=== PATIENT | male | born 1955 | race Caucasian/White ===

== ENCOUNTER → 2021-03-24 | Outpatient (CLI) | payer OTHER ==
[~2021-03-24] MED LIST: HYDR12.58 PO; IBUP-1027 PO; MULT-245 PO
--- NOTE | 2021-03-24 15:44 | PDOC1 ---
INITIAL PAIN CONSULT DATE OF SERVICE: DOS: DATE: 03/24/21 TIME: 15:34 CHIEF COMPLAINT: Chief Complaint: Neck and bilateral upper extremity pain left greater than right HISTORY OF PRESENT ILLNESS: 65-year-old male presents with history of pain base the neck and shoulders upper extremities left greater than right for about 3 months not the result of any specific injury or accident that he is aware of but has been getting worse with time to the point where he is becoming very fatigued with both the upper extremity especially on the left side even with simple tasks as brushing his teeth become very difficult and he is having weakness in both the arms again worse on the left side patient reported stiff and the neck and shoulders shooting pain the base of the neck and shoulders into the upper extremities posterior deltoid anterior deltoid lateral deltoid biceps triceps forearms in the anterior and posterior aspect and also into the hand specially in the thumb and first finger on the left side but also into the hand on the right side with less intensity patient reports he has not been dropping items specifically but is very fatigued and is very careful when he is holding something because it feels like it may drop it patient reports it is a shooting pain in the arms cold feeling as well as burning in the base of the neck and shoulders worse with repetitive motions reaching or lifting items reaching forward repetitive w eightbearing as well with some numbness and tingling in the hands patient reports it generally does not awaken her from sleep at night does not affect her bowel bladder control does affect his ability to walk he feels he is off balance and feels that his arms are not swinging naturally as he cannot feel them as well as he did 3 months ago patient rates his disability rating 0-10 10 being the worst is a 9 with family home responsibilities recreation occupation sexual behavior and self-care 6 with social activity and 1 with life support activities. Patient has had chiropractic treatment since November of this year and also has his daughter who is a physical therapist has been working on him and giving him physical therapy exercises which has been doing diligently daily 4-5 times patient reports still significant pain despite the exercises and stretching. Patient has been applying heat packs to the base of neck and shoulders alternating with ice packs which helped temporarily as well. Patient also been taking ibuprofen which does decrease the pain by about 20 to 25%. Patient reports no motor deficits but significant fatigability again of the left greater than right upper extremities. PAST MEDICAL HISTORY: PMH: Hypertension, cigarette smoking PREVIOUS SURGERIES: Past Surgical Hx: Hernia repair 2008, tonsillectomy as a child, appendectomy as a child CURRENT MEDICATIONS: Current Meds: Active Scripts Medications Dose Route/Sig Max Daily Dose Days Date Category Ibuprofen 400 Mg Tablet 400 Mg PO PRN Q6HRS PRN 03/24/21 Reported Multi Vitamin Daily (Multivitamin) 1 Each Tablet 1 Tab PO DAILY 30 03/24/21 Reported Hydrochlorothiazide Tablet (Hydrochlorothiazide) 12.5 Mg Tablet 12.5 Mg PO DAILY 03/24/21 Reported ALLERGIES; Allergies: Coded Allergies: No Known Drug Allergies (Unverified , 03/24/21) FAMILY HISTORY: Family Hx: No major medical problems or conditions that he is aware of SOCIAL HISTORY: Social Hx: Patient drinks alcohol about 1 case of beer a week smokes about half pack of cigarettes a day continues to smoke has for 40 years, does not use any illegal illicit or recreational drugs is lives with his spouse lives locally in [facility] and is currently retired. REVIEW OF SYSTEMS: ROS: Positive for those items mentioned in history of present illness, all systems are reviewed, otherwise negative ,and are complete full and well-documented on patient's chart. PHYSICAL EXAM: VS: Blood pressure is 202/107 pulse 85 respirations 18 temperature 97.9 F height is 5 foot 10 inches weight is 212 pounds PE: PHYSICAL EXAMINATION: GENERAL: The patient is awake, alert, oriented, appropriate, very pleasant in demeanor HEENT: Shows normocephalic, atraumatic. Extraocular movements are intact and symmetrical. Oral cavity: Mucous membranes moist and pink. Dentition is intact. NECK: Shows anterior throat supple without palpable lymphadenopathy noted. Swallow reflex symmetrical. CHEST: Shows normal on inspection. Breath sounds are clear bilaterally, coarse and distant but no rales or rhonchi auscultated. HEART: Shows S1, S2 clear. No murmurs auscultated. ABDOMEN: Soft, nontender, nondistended. No palpable organomegaly is noted. BACK: Shows spine grossly in the midline. Normal-appearing cervical lordotic curvature. Cervical paraspinous muscles show symmetrical on inspection, on palpation some moderate tenderness diffusely throughout the upper middle lower distribution the paraspinous muscles bilaterally but without asymmetry without trigger points or atrophy or hypertrophy. Patient shows good rotation motion cervical spine with some moderate tenderness with far left lateral rotation past 45 degrees as well as with extension but not with forward flexion or right lateral rotation. There is mildly increased thoracic kyphosis, some flattening of the lumbar lordotic curvature. EXTREMITIES: Upper extremities show deep tendon reflexes 2+ in the biceps and triceps tendons. Motor exam is 5 on a scale of 5 with right rib, biceps and triceps flexion and 4/5 on the left. Peripheral pulses are 2+ radial. No peripheral edema is noted bilaterally. Upper extremities are warm and dry to touch, equal in color and appearance. Shoulder shrug strong intact without loss of strength on resistance as is abduction of the shoulders 90 degrees bilaterally. SKIN: Shows warm and dry, good turgor. No edema. No sores, rashes or bruising throughout. IMPRESSION: Impression: 65-year-old male with 3-month history increasing pain base of neck bilateral upper extremities left greater than right in a radicular fashion following a C6- 7 dermatomal distribution. Hypertension Cigarette smoking Plan: Options were discussed with the patient including serve medical managements continued physical therapies and chiropractic treatments as well as interventional techniques. As patient has been doing physical therapy exercises also been treating for chiropractic for several months without resolution and has been using anti-inflammatories without significant improvement he like to pursue interventional techniques. We discussed a cervical epidural steroid injection using descriptions as well as anatomical models to describe the procedure. Patient will wait for preauthorization with insurance provider, once obtained we will have him return for translaminar approach C6-7 level cervical epidural steroid injection with fluoroscopic guidance. In the meantime, patient continue with stretching and strengthening physical therapy exercises as well as oral analgesics as currently. Also will add Medrol Dosepak patient was given instructions well side effects aware with the medication. CLARE RAMÍREZ MD Mar 24, 2021 15:44
== END | disposition home or self-care (01) ==
LOC: PNCL 13:55
PROVIDERS: ATTEND Anesthesiology
DX: M54.2 Cervicalgia (principal); M79.602 Pain in left arm; M79.601 Pain in right arm; I10 Essential (primary) hypertension; Z87.891 Personal history of nicotine dependence; Z79.899 Other long term (current) drug therapy
CPT/HCPCS: G0463

== ENCOUNTER → 2021-03-26 | Outpatient (CLI) | payer OTHER ==
[~2021-03-26] MED LIST changes: +methylPREDNISolone ACETATE 80 MG/ML VIAL. ONE
--- NOTE | 2021-03-26 08:58 | PDOC ---
Progress Note - Pain Clinic Date of Service: DOS: DATE: 03/26/21 TIME: 08:55 Diagnosis: Dx: Cervical radiculopathy with cervical degenerative disc disease and cervical spinal stenosis History or Present Illness: HPI: 65-year-old male returns for follow-up with complaints of pain base the neck and bilateral upper extremities with numbness and tingling in both of the hands with significant fatigability and weakness in the hands patient reports is a 5 out of scale 10 at worst average and least is a 5 today patient reports a stiff feeling in both the hands and arms tingling as well with radiating pain base the neck and shoulders upper extremities into the biceps triceps deltoid as well as into the forearms anterior and posteriorly in the hands again with tingling and stiff feeling with numbness in the hands with difficulty with holding onto things and fine motor movements as well. Patient reports is better with resting supporting his arms does not awaken from sleep generally. Patient reports no bowel or bladder incontinence. Patient is continuing with stretching and strength exercise as well as oral analgesics without significant improvement. Physical Exam: VS: Blood pressure is 200/110 pulse 71 respirations 18 temperature 97.8 F height is 5 feet 10 inches weight 216 pounds PE: PHYSICAL EXAMINATION: GENERAL: The patient is awake, alert, oriented, appropriate, very pleasant in demeanor HEENT: Shows normocephalic, atraumatic. Extraocular movements are intact and symmetrical. Patient wearing eyeglasses. Oral cavity: Mucous membranes moist and pink. Dentition is intact. NECK: Shows anterior throat supple without palpable lymphadenopathy noted. Swallow reflex symmetrical. CHEST: Shows normal on inspection. Breath sounds are clear bilaterally, distant but no rales or rhonchi. HEART: Shows S1, S2 clear. No murmurs auscultated. ABDOMEN: Soft, nontender, nondistended. No palpable organomegaly is noted. BACK: Shows spine grossly in the midline. Normal-appearing cervical lordotic curvature. Cervical paraspinous muscles show symmetrical inspection, on palpation some moderate tenderness diffusely bilaterally diffusely without significant radiation. Patient does show good rotation of motion of the cervical spine with some moderate tenderness with right left lateral rotation as well as extension but not with forward flexion. There is slightly increased thoracic kyphosis, some minor flattening of the lumbar lordotic curvature. EXTREMITIES: Upper extremities show deep tendon reflexes 2 in the patellar and tendo calcaneus tendons. Motor exam is 5 on a scale of 5 with right dorsiflexion, extension, quadriceps and hamstring flexion and 4/5 on the left. Peripheral pulses are 2+ posterior tibial. No peripheral edema is noted bilate rally. Upper extremities are warm and dry to touch, equal in color and appearance. Shoulder shrug is strong and intact with some moderate tenderness with resistance but without loss of strength this is true with abduction of the shoulder 90 degrees as well. SKIN: Shows warm and dry, good turgor. No edema. No sores, rashes or bruising throughout. Procedure: Procedure: Options were discussed with the patient. Patient chart was reviewed his his current medication regimen updated current review of systems updated today as well. We will proceed with cervical epidural steroid injection today with flu oroscopic guidance. Risks were discussed including but not limited to: Bleeding, infection, possibility of epidural hematoma and subsequent neurological compromise, dural puncture, headaches, spinal cord and/or nerve damage, side effects of steroid medication, and poor results regarding pain control. Patient understands and wished to proceed. Patient will return to the clinic in approximately 2 weeks for follow-up, was counseled as to return appointment, activity level, and side effect to be aware of. Medication Injected: Med Injected: Procedure cervical epidural steroid injection at the C6-7 level, using local anesthetic under sterile prep and drape using C-arm fluoroscopic guidance under local anesthesia medications injected ;120 mg Depo-Medrol +5 mL normal saline and 2 mL contrast; condition at discharge is stable patient tolerated procedure well. and had no complications Condition at Discharge: Condition at Discharge: Condition at discharge stable, paced tolerated procedure well complications. CLARE RAMÍREZ MD Mar 26, 2021 08:58
--- NOTE | 2021-03-26 08:59 | PDOC4 ---
Procedure Note: ICD 10 Code: ICD 10 Code: M54.12 M50.30 M48.02 Procedure Note: Patient was consented for cervical epidural steroid injection with fluoroscopic guidance. Risks were discussed including but not limited to: Bleeding, infection, possibility of epidural hematoma and subsequent neurological compromise, dural puncture, headaches, spinal cord and/or nerve damage, side effects of steroid medication, and poor results regarding pain control. Patient understands and wished to proceed. Procedure cervical epidural steroid injection at the C6-7 level, using local a nesthetic under sterile prep and drape using C-arm fluoroscopic guidance under local anesthesia medications injected ;120 mg Depo-Medrol +5 mL normal saline and 2 mL contrast; condition at discharge is stable patient tolerated procedure well. and had no complications CLARE RAMÍREZ MD Mar 26, 2021 08:59
== END | disposition home or self-care (01) ==
LOC: PNCL 07:49
PROVIDERS: ATTEND Anesthesiology
DX: M50.10 Cervical disc disorder with radiculopathy, unspecified cervical region (principal); M48.02 Spinal stenosis, cervical region; M54.12 Radiculopathy, cervical region; Z79.899 Other long term (current) drug therapy
CPT/HCPCS: 62321; J1040

== ENCOUNTER → 2021-04-17 | Outpatient (CLI) | payer OTHER ==
[~2021-04-17] MED LIST changes: +AMLO-186 PO; -methylPREDNISolone ACETATE 80 MG/ML VIAL. ONE
[2021-04-17 14:21] LABS: BASO % 1 % (0-3); EOS # 0.2 x10^3/uL (0.0-0.7); EOS % 2 % (0-3); HEMATOCRIT 48.9 % (39.0-53.0); HEMOGLOBIN 16.8 g/dL (13.0-17.5); LYMPH # 3.1 x10^3/uL (1.0-4.8); LYMPH % 31 % (24-48); MEAN CORPUSCULAR HEMOGLOBIN 33 pg (25-35); MEAN CORPUSCULAR HGB CONC 34 g/dL (31-37); MEAN CORPUSCULAR VOLUME 95 fL (79-100); MONO # 0.8 x10^3/uL (0.0-1.1); MONO % 8 % (0-9); NEUT # 5.8 x10^3/uL (1.8-7.7); NEUT % 59 % (31-73); PLATELET COUNT 222 x10^3/uL (140-400); RED BLOOD COUNT 5.16 x10^6/uL (4.30-5.70); RED CELL DISTRIBUTION WIDTH 12.9 % (11.5-14.5); WHITE BLOOD COUNT 9.9 x10^3/uL (4.0-11.0)
[2021-04-17 14:34] LABS: ALBUMIN 3.6 g/dL (3.4-5.0); ALBUMIN/GLOBULIN RATIO 0.9 (1.0-1.7); CALCIUM 8.6 mg/dL (8.5-10.1); CREATININE 0.8 mg/dL (0.7-1.3); GFR 97.3; POTASSIUM 4.1 mmol/L (3.5-5.1); TOTAL BILIRUBIN 0.4 mg/dL (0.2-1.0); TOTAL PROTEIN 7.8 g/dL (6.4-8.2)
--- NOTE | 2021-04-17 14:39 | EKG ---
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
== END ==
LOC: SURGPAT 13:52
PROVIDERS: ATTEND Neurological Surgery
DX: Z01.818 Encounter for other preprocedural examination (principal); M47.12 Other spondylosis with myelopathy, cervical region; M48.02 Spinal stenosis, cervical region
CPT/HCPCS: 36415; 80053; 85025; 87641; 93005

== ENCOUNTER 2021-04-23 09:48 | Observation (INO) | payer OTHER ==
[2021-04-17 14:30] VITALS: BP 188/91
--- NOTE | 2021-04-22 11:30 | HP ---
DATE OF SERVICE: 04/22/2021 ADMIT DATE: 04/23/2021 PREOPERATIVE HISTORY AND PHYSICAL HISTORY OF PRESENT ILLNESS: The patient is a pleasant 65-year-old man who is having difficulty with neck pain, numbness, stiffness in both of his arms and legs. The left side is slightly worse than the right. He says that about 6 months ago, he hit his head and has noted soreness in his neck since then. About 2 months ago, he noticed numbness in his arms and hands. He is dropping objects. He says that his neck pain gradually improved. He has difficulty coordinating his hands. His balance is off and he feels unsteady. He has not fallen. He had two cervical epidural steroid injections without benefit. CURRENT MEDICATIONS: Motrin, hydrochlorothiazide. PAST MEDICAL HISTORY: Hypertension. PAST SURGICAL HISTORY: Meniscus repair, appendectomy, hernia repair. FAMILY HISTORY: Heart disease, hypertension. 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 . Smokes 1 pack per day. Drinks alcohol 1-2 times per week. ALLERGIES: No known drug allergies. REVIEW OF SYSTEMS: A 12-point review of systems was performed and is noncontributory except that mentioned above. PHYSICAL EXAMINATION: GENERAL: Alert, pleasant, in no acute distress. HEAD: Normocephalic, atraumatic. NECK: [id number] tenderness with palpation of the posterior cervical region. SKIN: Warm and dry. MUSCULOSKELETAL: Cervical paraspinal muscle bulk is normal. Cervical range of motion is restricted. There is normal range of motion of the upper extremities bilaterally. EXTREMITIES: No clubbing, cyanosis or edema. NEUROLOGIC: Alert and oriented x 3. Strength is 5/5 in the bilateral upper and lower extremities. He was unable to button or use his zipper with his hands. Sensory was intact to light touch in the upper and lower extremities except for decreased sensation with light touch involving the forearm and hand, reflexes were present and symmetric in the upper and lower extremities bilaterally with both ankle jerks 3+. He had spastic and unsteady gait. IMAGING: I reviewed his cervical MRI scan. On that study, there is cord flattening and cord hyperintensity at C3-C4. There is also high-grade bilateral foraminal narrowing at that level. The thecal sac is 0.6 cm in AP diameter. ASSESSMENT AND PLAN: He is developing a severe cervical myelopathy with difficulty using his hands and unsteady gait. There is evidence of myelomalacia and cord edema within the spinal cord at C3-4 along with relatively severe stenosis at that level. My recommendation is that we move forward, probably with an ACDF at C3-4. I spoke with him about the surgery and the risks. I spoke with him about the technique of surgery. He has failed conservative measures. He understands he would like to go ahead. We will make the arrangements. JOE DR: Delmi TID: [id number]
[~2021-04-23] VITALS: Ht 177.8 cm; Wt 97.7 kg
[2021-04-23] VITALS (10 sets, daily range): BP systolic 134–172; BP diastolic 63–96
[~2021-04-23 09:48] MED LIST changes: +BUPIVACAINE-EPI 0.5% 30 ML VIAL KIT. ONE; +GELATIN SPONGE SIZE 100. ONE; +HYDROmorphone 2 MG/ML INJ. IVP PRN; +IV RINGERS,LACTATED 1000ML 1,000 ML IV SCH; +MORPHINE SULFATE 2 MG/ML INJ. IVP PRN; +PROCHLORPERAZINE 10 MG/2 ML VIAL. IVP PRN; +THROMBIN TOPICAL 20,000 UNIT SPRAY.SYRN KIT TP ONE; +ceFAZolin SODIUM 1 GM in IV NORMAL SALINE 1000ML BAG 1,000 ML IRR ONE; +fentaNYL PF VIAL 100 MCG/2 ML VIAL IVP PRN
[2021-04-23] MEDS ORDERED: PROPOFOL 10 MG/ML (20ML) VIAL. IV ONE (09:49)
[2021-04-23] MEDS ORDERED: PROPOFOL 50 ML IV ONE ×2 (09:49→10:55)
[2021-04-23] MEDS ORDERED: DEXAMETHASONE SOD PHOS 4 MG/ML VIAL ONE (09:49)
[2021-04-23] MEDS ORDERED: LIDOCAINE 2% PF 5 ML VIAL. ONE (09:49)
[2021-04-23] MEDS ORDERED: SEVOFLURANE > 120 MINUTES. IH ONE (09:49)
[2021-04-23] MEDS ORDERED: PHENYLEPHRINE 10 MG/ML VIAL. ONE (09:49)
[2021-04-23] MEDS ORDERED: REMIFENTANIL 1 MG VIAL. IV ONE ×2 (09:50→12:27)
[2021-04-23] MEDS ORDERED: fentaNYL PF VIAL 100 MCG/2 ML VIAL ONE ×2 (09:50→15:52)
[2021-04-23] MEDS ORDERED: SUCCINYLCHOLINE 200 MG/10 ML VIAL. ONE (09:50)
[2021-04-23] MEDS ORDERED: ACET325T9 PO (10:18)
[2021-04-23] MEDS ORDERED: GLYCOPYRROLATE 1 MG/5 ML VIAL. ONE (10:39)
[2021-04-23] MEDS ORDERED: KETAMINE HCL IN NACL, ISO-OSM 50 MG/5 ML SYRINGE ONE (10:39)
[2021-04-23] MEDS ORDERED: HYDROmorphone 2 MG/ML INJ. ONE (12:51)
[2021-04-23] MEDS ORDERED: MAG HYDROX/ALUMINUM HYD/SIMETH 30 ML ORAL.SUSP PO PRN (15:15)
[2021-04-23] MEDS ORDERED: MAGNESIUM HYDROXIDE 2,400 MG/30 ML ORAL.SUSP. PO PRN (15:15)
[2021-04-23] MEDS ORDERED: NALOXONE 0.4 MG/ML VIAL. IV PRN (15:15)
[2021-04-23] MEDS ORDERED: HYDROcodone/APAP 5/325MG 1 TAB TABLET PO PRN (15:15)
[2021-04-23] MEDS ORDERED: 0.9 % SODIUM CHLORIDE 10 ML DISP.SYRIN. IV PRN (15:15)
[2021-04-23] MEDS ORDERED: ACETAMINOPHEN 325 MG TABLET. PO PRN (15:15)
[2021-04-23] MEDS ORDERED: fentaNYL PF VIAL 100 MCG/2 ML VIAL IVP PRN (15:15)
[2021-04-23] MEDS ORDERED: diphenhydrAMINE HCL 25 MG CAPSULE PO PRN (15:15)
[2021-04-23] MEDS ORDERED: METHOCARBAMOL 750 MG TABLET PO PRN (15:15)
[2021-04-23] MEDS: fentaNYL PF VIAL 100 MCG/2 ML VIAL IVP PRN ×2 (15:54→16:16)
--- NOTE | 2021-04-23 16:15 | NUR ---
Pt arrived to unit by bed. Alert and oriented x's 4. Dressing on neck d/i with soft collar. Still c/o shoulder pain and has numbness on finger tips on both hands which he had prior to surgery. Equal hand material scheduler with + radial pulses. ANNABELLE's and HERMANN's on bilaterally. IVF's intact and infusing. O2 at 2l per n/c. Had to increase O2 to 3l to keep it above 91%. Oriented to room and controls. Side rails up x's 2 with call light in reach. at bedside. Cont. monitored.
[2021-04-23] MEDS ORDERED: NICO1PAT21 TP (16:43)
[2021-04-23] MEDS: HYDROcodone/APAP 5/325MG 1 TAB TABLET PO PRN ×2 (17:30→23:10)
[2021-04-23] MEDS: POTASSIUM CL 20MEQ D5-0.45NACL 1,000 ML IV SCH (17:32)
[2021-04-23] MEDS: ACETAMINOPHEN 325 MG TABLET. PO SCH (17:32)
--- NOTE | 2021-04-23 17:53 | OP ---
DATE OF SURGERY: 04/23/2021 PREOPERATIVE DIAGNOSIS: Cervical spinal stenosis with cervical myelopathy, C3-C4. POSTOPERATIVE DIAGNOSIS: Cervical spinal stenosis with cervical myelopathy, C3-C4. OPERATION PERFORMED: Anterior cervical microdiscectomy, anterior cervical interbody fusion and anterior cervical plate, C3-C4. The operation was done with EMG monitoring, SSEP monitoring, NIMS monitoring, fluoroscopy, microscopic dissection, motor evoked potentials. Surgeon: Manny Diaz M.D. TALENT DEVELOPMENT CONSULTANT: JOY Sim; assisted with the surgery. She assisted with the exposure, the microdiskectomy as well as the fusion and closure. OPERATIVE INDICATIONS: The patient is a pleasant 66-year-old man who developed problems with unsteadiness and coordination along with numbness and stiffness in arms and legs. On imaging studies, he had the above-mentioned findings and I recommended an anterior cervical microdiscectomy and fusion. I spoke about the surgery, the risks, technique and expected postoperative course, and he wished to go ahead. DESCRIPTION OF PROCEDURE: Following general endotracheal anesthesia, the patient was positioned supine on the operating room table with his neck in a neutral position. The anterior cervical region was then prepped and draped in standard fashion. ANNABELLE hose and AV impulse boots were applied for DVT prophylaxis. A microscope was draped, fluoroscopy was draped and brought into the field. Monitoring established. Ancef 2 grams was given less than one hour prior to initiation of surgery. Using fluoroscopic guidance, incision was made from the midline around to the right side in a skin crease. I dissected around the medial aspect of sternocleidomastoid after opening the platysma and dissected down medial to the carotid artery sheath and palpated the anterior cervical vertebral bodies and placed Cloward handheld retractors and gently retracted the trachea and esophagus contralaterally and placed an anterior cervical retractors wedged in the longus colli muscle. I then placed 14 mm distraction pins in C3 and C4. During this time, I was confirming that position fluoroscopically. Following this, I brought in the microscope and the remainder of surgery done with the microscope using microscopic technique. I incised the anterior annulus. I performed discectomy with pituitary rongeurs. I gently distracted the disc space. I removed cartilaginous endplate. I drilled the posterior spurring and then used a 1-2 mm Kerrison to further trim that spurring and then I opened the annulus and the ligament widely bilaterally. The dura was well visualized. The neural foramina were open. I scraped again the cartilaginous endplate and prepared the bed for fusion. Hemostasis was excellent. I placed a 7 mm interbody fusion cage after I assured myself of perfect hemostasis, which was packed with allograft bone. This was gently tapped into position and then I used an anterior cervical plate with 14 mm screws using the [place] system and the screws after placement, which were 14 mm were locked. Following this, then I irrigated with antibiotic solution. I removed the retractor and explored carefully. I Valsalvaed the patient to assure excellent hemostasis, which there was and then I gently irrigated, closed the wound in layers with absorbable suture and skin was closed with a 4-0 subcuticular stitch. I felt the surgery went very well. ELTON DR: Simona TID: [id number] SAM
--- NOTE | 2021-04-23 18:38 | NUR ---
returned from bathroom; unsteady gait. voided large amount. no appetite. remains at bedside.
[2021-04-23] MEDS: ceFAZolin SODIUM IV Push 1 GM VIAL. IVP SCH (21:06)
[2021-04-23] MEDS: DOCUSATE SODIUM 100 MG CAPSULE. PO SCH (21:06)
[2021-04-23] MEDS: NICOTINE 21MG PATCH. TD SCH (21:07)
[2021-04-24 04:08] VITALS: BP 174/96
[2021-04-24] MEDS: CALCIUM CARBONATE 500 MG TAB.CHEW PO PRN ×2 (04:10→09:56)
[2021-04-24] MEDS: POTASSIUM CL 20MEQ D5-0.45NACL 1,000 ML IV SCH (04:35)
[2021-04-24 05:38] VITALS: BP 172/95
[2021-04-24] MEDS: ACETAMINOPHEN 325 MG TABLET. PO SCH ×3 (05:40→11:35)
[2021-04-24] MEDS: ceFAZolin SODIUM IV Push 1 GM VIAL. IVP SCH ×2 (05:40→12:56)
[2021-04-24 07:19] VITALS: BP 180/96
[2021-04-24] MEDS: DOCUSATE SODIUM 100 MG CAPSULE. PO SCH (08:48)
[2021-04-24] MEDS ORDERED: MULTIVITAMIN with MINERAL TABLET. PO SCH (09:00)
[2021-04-24] MEDS ORDERED: NICOTINE 21MG PATCH. TD SCH (09:00)
[2021-04-24] MEDS ORDERED: hydroCHLOROthiazide 12.5 MG CAPSULE PO SCH (09:00)
[2021-04-24] MEDS ORDERED: DOCU-109 PO (09:52)
[2021-04-24] MEDS ORDERED: HYDR-2761 PO (09:52)
[2021-04-24] MEDS ORDERED: METH-562 PO (09:52)
--- NOTE | 2021-04-24 09:55 | SNU/HH DC ---
DISCHARGE WITH HOME HEALTH DISCHARGE INFORMATION: Discharge Date: Apr 24, 2021 Final Diagnosis: cervical stenosis Condition on Discharge: Stable CODE STATUS: Code Status: Full HOME HEALTH: Face to Face: I certify this patient is under my care and that I, or a nurse practitioner or physician's diploma dental assistant working with me, had a face to face encounter that meets the physician face to face encounter requirements with this patient on 04/24/21 Long-Term For: Assess & Educate Safety RN For Eval/Treatment: Yes Physical Therapy For: Safety Pt Meets Homebound Status: Unsteady balance w/ amb,, Limited distance walking POST DISCHARGE ORDERS: Activity Instructions for Disc: Activity as tolerated, Avoid exertion Weight Bearing Status after Di: No restrictions Bathing Instructions: Shower-keep dressing dry, No Tub Bath until see DIET AFTER DISCHARGE: Regular Wound/Incision Care: Ice to area for comfort Other wound/incision instructi: may remove dressing in 48 hours if dry, soft collar for comfort FOLLOW-UP: PCP to follow Home Health: Dr. Nagel [phone] Follow up with: PCP TREATMENT/EQUIPMENT ORDERS: Adaptive Equipment Issued: Front wheeled walker CERTIFICATION STATEMENT: Certification Statement: Certification Statement: Based on the above finding, I certify that this patient is confined to the home and needs intermittent longterm care, physical therapy and/or speech therapy, or continues to need occupational therapy.~ This patient is under my care, and I have initiated the establishment of the plan of care.~ This patient will be followed by myself or a community physician who will periodically review the plan of care. Home Meds Reported Medications Nicotine (NICODERM CQ 21mg) 1 Each Patch.td24, 1 PATCH TP DAILY for stop smoking aide, #28 PATCH 1 Refill 04/23/21 Acetaminophen (TYLENOL) 325 Mg Tablet, 500 MG PO Q6HRS for , TAB 04/23/21 Amlodipine Besylate (AMLODIPINE BESYLATE) 5 Mg Tablet, 5 MG PO DAILY07 for HTN, TAB 04/17/21 Ibuprofen (IBUPROFEN) 400 Mg Tablet, 400 MG PO PRN Q6HRS PRN for INFLAMMATION, TAB 03/24/21 Multivitamin (MULTI VITAMIN DAILY) 1 Each Tablet, 1 TAB PO DAILY for supplment for 30 Days, #30 TAB 0 Refills 03/24/21 Hydrochlorothiazide (HYDROCHLOROTHIAZIDE TABLET) 12.5 Mg Tablet, 12.5 MG PO DAILY for DIURETIC, TAB 0 Refills 03/24/21 BRIONNA NAGEL MD Apr 24, 2021 09:55
[2021-04-24 11:20] VITALS: BP 180/99
[2021-04-24] MEDS: NICOTINE 21MG PATCH. TD SCH (13:08)
--- NOTE | 2021-04-24 14:51 | NUR ---
Rosalina Garcia APRN on the unit and made aware of BP 180/99. Spoke with pt and . Primary has been adjusting bp meds. Instructed to make appointment with Dr. Mancuso to follow up. Okay to discharge.
--- NOTE | 2021-04-24 15:30 | NUR ---
Discharge instructions given. Answered questions and concerns. Verbalized understanding. Will follow up with primary about BP meds. Discharged home. Refused home health. Escorted out by w/c accompanied by spouse.
--- NOTE | 2021-04-24 16:15 | NUR ---
Pt's called to let nurse know that spouse's blood pressure was better after getting home.
--- NOTE | 2021-04-28 16:06 | PATHOLOGY ---
[facility] Accession Number: [id number] . 01 Material submitted: . vertebral column - CERVICAL DISC. Modifiers: C3-4 . 01 Clinical history: . CERVICAL SPONDYLOSIS WITH MYELOPATHY, STENOSIS ACDF C3-4 . 02 Diagnosis: Segments of fibrocartilaginous tissue and bone, cervical disc: - Degenerative changes of fibrocartilaginous tissue. (JPM:pawel; 04/28/2021) MBR 04/28/2021 1348 Local . 02 Comment: There is no evidence of an acute inflammatory process or malignancy. . 02 Electronically signed: . Mickey Razo MD, Pathologist NPI- [id number] . 01 Gross description: . The specimen is received in formalin, labeled "Klein, Chapito, cervical disc". Received are multiple segments of pale juarez to pink-juarez fibrous tissue admixed with possible fragments of gritty bone measuring 2.2 x 1.5 x 0.3 cm in aggregate dimensions. The specimen is submitted representatively in cassette A1, following light decalcification. ([facility]; 04/25/2021) NRI/NRI 04/25/2021 1053 Local . 02 Pathologist provided ICD-10: M43.02, G95.9 . 02 CPT . 360986, [id number] Specimen Comment: A courtesy copy of this report has been sent to [phone], [phone] Specimen Comment: [id number] Specimen Comment: Report sent to / DR MAK Specimen Comment: A duplicate report has been generated due to demographic updates. Performed at: [id number] [facility] [address], [place], [place] [id number] MD Roque Barboza MD Phone: [phone] Performed at: [address] [id number] MD Mickey Razo MD Phone: [phone]
== END 2021-04-24 15:30 | disposition home or self-care (01) ==
LOC: SURG 09:48 → 4 SOUTHEST 15:08
PROVIDERS: ADMIT Neurological Surgery; ATTEND Neurological Surgery
DX: M48.02 Spinal stenosis, cervical region (principal); Z20.822 Contact with and (suspected) exposure to COVID-19; G95.89 Other specified diseases of spinal cord; I10 Essential (primary) hypertension; F17.210 Nicotine dependence, cigarettes, uncomplicated; Z90.49 Acquired absence of other specified parts of digestive tract; Z79.899 Other long term (current) drug therapy; Z98.890 Other specified postprocedural states
CPT/HCPCS: 20930; 22551; 22845; 22853; 88304; 88311; 96374; 96376; 97116; 97161; A4364; A4556; A4930; A6254; A6258; C1713; C1821; G0378; G0379; J0330; J0690; J1100; J1170; J2370; J2704; J3010; J3480; J3490; J7030; 76000; A4222; A4223

== ENCOUNTER → 2021-08-01 | Outpatient (CLI) | payer OTHER ==
[~2021-08-01] MED LIST changes: +ACET325T9 PO; -BUPIVACAINE-EPI 0.5% 30 ML VIAL KIT. ONE; +DOCU-109 PO; +GADOTERATE 5 MMOL/10ML VIAL. IVP ONE; -GELATIN SPONGE SIZE 100. ONE; +HYDR-2761 PO; -HYDROmorphone 2 MG/ML INJ. IVP PRN; -IV RINGERS,LACTATED 1000ML 1,000 ML IV SCH; +METH-562 PO; -MORPHINE SULFATE 2 MG/ML INJ. IVP PRN; +NICO1PAT21 TP; -PROCHLORPERAZINE 10 MG/2 ML VIAL. IVP PRN; -THROMBIN TOPICAL 20,000 UNIT SPRAY.SYRN KIT TP ONE; -ceFAZolin SODIUM 1 GM in IV NORMAL SALINE 1000ML BAG 1,000 ML IRR ONE; -fentaNYL PF VIAL 100 MCG/2 ML VIAL IVP PRN
--- NOTE | 2021-08-01 14:03 | KCIC ---
EXAM: Cervical spine MRI without and with contrast. HISTORY: Stenosis. TECHNIQUE: Multiplanar, multisequence magnetic resonance imaging of the cervical spine was performed without and with contrast. COMPARISON: None. FINDINGS: There is instrumented anterior spinal fusion and interbody fusion at C3-C4. There is minima l anterolisthesis of C2 on C3 and C4 on C5. There is degenerative endplate remodeling with disc space narrowing predominantly at the lower cervical levels. There are few benign osseous hemangiomas. Ther e is edema involving the right greater than left C3-C4 facet joints, likely degenerative/inflammatory in etiology. There is degenerative fusion of the right facet joints at C5 4 to C5 and C2-C3. There is deformation of the cervical spinal cord at multiple levels due to central canal stenosis. Th ere is increased signal within the spinal cord at C3-C4, likely due to myelomalacia rather than edema given the presence of postoperative changes at this level. There is linear T2 hyperintensity within the upper thoracic spinal cord extending from the mid aspect of T1 to the inferior aspect of T2. This is not typical in appearance for syringohydromyelia. There is no suspicious enhancing lesion. At C2-C3, there is no stenosis. At C3-C4, there is instrumented fusion. There is a left lateral osteophyte complex. There is buckling of the ligamentum flavum. There is uncovertebral arthropathy. There is moderate bilateral foraminal stenosis. There is moderate central canal stenosis measuring 7.2 mm in anterior posterior dimension. At C4-C5, there is severe right facet arthropathy and associated right facet joint effusion. There is mild left facet arthropathy. There is mild bilateral foraminal stenosis. At C5-C6, there is a right paracentral to lateral recess disc protrusion superimposed on a disc bulge and endplate osteophytosis. There is moderate bilateral facet arthropathy. There is uncovertebral ar thropathy. There is moderate right and severe left foraminal stenosis. There is deformation of the sp inal cord and ucil-gj-dhiqkbep central canal stenosis measuring 8.0 mm in anterior posterior dimensio n. At C6-C7, there is a disc bulge and endplate remodeling. There is mild bilateral facet arthropathy. T here is bilateral uncovertebral arthropathy. There is moderate to severe right greater than left fora connie stenosis. There is mild central canal stenosis measuring 9.0 mm in anterior posterior dimension . IMPRESSION: 1. Linear signal abnormality within the central aspect of the upper thoracic spinal cord from the mid aspect of T1 to the inferior aspect of T2. This measures approximately 2.8 cm in length and 5 mm in caliber. This is not typical in appearance for syringohydromyelia. There is no cord expansion to sugg est acute infarction, acute demyelination or neoplasm. The possibility of changes related to chronic infarction or demyelination is not excluded. Correlation with prior studies is recommended to assess for interval change. Postcontrast imaging of the thoracic spine may also be useful for characterizati on. 2. Small focus of suspected myelomalacia involving the cervical cord at C3-C4. 3. Multilevel degenerative change, described in detail above. This results in significant stenosis at the aforementioned levels. 4. Instrumented fusion at C3-C4. Electronically signed by: Margot Luis MD (08/01/2021 2:00 PM) [facility]
== END ==
LOC: KCIC MRI 12:18
PROVIDERS: ATTEND Neurological Surgery
DX: M48.02 Spinal stenosis, cervical region (principal); M47.812 Spondylosis without myelopathy or radiculopathy, cervical region; D18.09 Hemangioma of other sites; M50.322 Other cervical disc degeneration at C5-C6 level; M48.8X2 Other specified spondylopathies, cervical region; Z98.1 Arthrodesis status
CPT/HCPCS: 72156; A9575

== ENCOUNTER → 2021-08-06 | Outpatient (CLI) | payer OTHER ==
--- NOTE | 2021-08-07 09:35 | KCIC ---
MRI THORACIC SPINE WITHOUT AND WITH IV CONTRAST DATE: 08/06/2021 2:55 PM INDICATION: Syringohdromyelia. Disease of spinal canal. Abnormality seen on recent MR Cspine TECHNIQUE: Multi-planar multi-weighted magnetic resonance imaging of the thoracic spine was performed with and without contrast using the standard protocol. 18 cc of Clariscan contrast was administered intravenously. COMPARISON: MRI C-spine 08/01/2021. FINDINGS: The thoracic spine is normally aligned. No acute fracture. Vertebral body heights are maintained with out compression deformity. Mild multilevel degenerative disc desiccation and disc height loss. No mar row replacing process to suggest malignancy. Unchanged subtle T2 hyperintense spinal cord signal at T1 and T2 with conspicuous central canal. The conus medullaris terminates at a normal level. No soft tissue abnormality within the visualized chest or abdomen. The visualized thoracic aorta is n ormal caliber. Multilevel tiny disc bulges. Mild spinal canal stenosis at T4-5. No significant neural foraminal narr owing. IMPRESSION: Unchanged subtle T2 hyperintense spinal cord signal at T1 and T2 with conspicuous central canal. No a bnormal enhancement or cord expansion. Favor this represents myelomalacia from process such as remote trauma or old transverse myelitis. Mild degenerative thoracic spondylosis. Electronically signed by: Caleb Guevara MD (08/07/2021 9:32 AM) [facility]
== END ==
LOC: KCIC MRI 14:34
PROVIDERS: ATTEND Neurological Surgery
DX: M47.814 Spondylosis without myelopathy or radiculopathy, thoracic region (principal); M48.04 Spinal stenosis, thoracic region; G95.0 Syringomyelia and syringobulbia; M51.24 Other intervertebral disc displacement, thoracic region
CPT/HCPCS: 72157; A9575